=== PATIENT | male | born 1965 | race Caucasian/White ===

== ENCOUNTER 2020-01-22 16:29 | Inpatient (IN) ==
[2020-01-22] MEDS ORDERED: REMDESIVIR 200 MG in NS 250 ML IV 250 ML IV SCH (16:55)
[2020-01-22] MEDS ORDERED: XOPENEX 1.25 MG/3 ML NEBULE NEB SCH (17:00)
--- NOTE | 2020-01-22 17:32 | RAD ---
EXAM: CHEST X-RAYHISTORY: COVID-19 positive. Cough. Shortness of breath.TECHNIQUE: AP chest x-ray dated 01/22/2020 at 5:17 PM.COMPARISON: None available.FINDINGS:Note: Exam degraded by shallow inspiratory effort.There is mild prominence of the bronchopulmonary markings, especially throughout the right lung and left lower lung fitzpatrick, in keeping with bronchitis and interstitial pneumonia (e.g. Covid pneumonia) in the appropriate clinical setting; DDX includes mild noncardiogenic pulmonary congestion in the appropriate clinical setting. Clinical correlation is advised.No focal lung consolidation/mass, pleural effusion, or pneumothorax is seen.The heart size and mediastinum are within normal limits. The visualized bony structures are within normal limits.IMPRESSION:1. Mild prominence of the bronchopulmonary markings, especially in the long run left lower back lung fitzpatrick, in keeping with bronchitis and interstitial pneumonia (e.g. Covid pneumonia) in the appropriate clinical setting; DDX includes mild noncardiogenic pulmonary congestion in the appropriate clinical setting.2. Recommend clinical correlation and appropriate follow-up evaluation (consider high-resolution noncontrast chest CT) for confirmation and further characterization as clinically warranted.Electronically signed by: Marisa Green (Jan 22, 2020 17:30:43)
[2020-01-22 17:39] LABS: ABG ALLEN TEST POS; ABG BASE EXCESS 0.9 mmol/L (-2.0-2.0); ABG HCO3 23.4 mmol/L (22-26)
[2020-01-22] MEDS ORDERED: TYLENOL 325 MG TAB PO PRN (17:54)
--- NOTE | 2020-01-22 18:09 | DR.H&P ---
H&P - History & Physical for Day of: H&P Date: 01/22/20 - Chief Complaint Chief Complaint: FEVER, DEHYDRATION, COVID+, SOB - History of Present Illness History of Present Illness: PT IS 54 WM DIRECT ADMIT WITH FAILED OUPTPT COVID 19 PNEUMONIA WITH HYPOXIA. PT TESTED POSITIVE ON 01/09. COMPLETED 10 DAYS OF AUGMENTIN AND STEROIDS WITH OUTPT ROCEPHIN INJECTIONS. PT REPORTS HE HAD FEVER FOR 5 DAYS, WEAKNESS INCREASED CHEST CONGESTION AND STEVENS. PT WAS GIVEN DOXYCYCLINE LAST WEEK AND PO PREDNISONE WITHOUT IMPROVEMENT. CXR REVEALED PNEUMONIA ON 01/21/20, O2 SAT IN OFFICE TODAY WAS 84-88% WITH TEMP 103 - Past Medical History Past Medical History: Anxiety, GERD, Hypertension - Past Surgical History Surgical History: Cholecystectomy - Family History Family Medical History: [place], Hypertension - Social History Does patient currently use any type of tobacco product: No Have you used tobacco products in the last 12 months: No Type of Tobacco Use: None Alcohol Use: None Drug Use: None - Medications Home Medications: MS Azithromycin [From Zithromax] Allergy (Verified 05/15/13 21:15) MS Fluticasone [From Flonase] Allergy (Verified 05/15/13 21:15) MS Moxifloxacin [From Avelox] Allergy (Verified 02/22/16 03:49) CONTINUE taking the following medications gabapentin 100 mg PO HS 01/22/20 [History] - Review of Systems Constitutional: Fever, Chills, Weakness, Malaise Eyes: No Symptoms Reported ENT: No Symptoms Reported Respiratory: Cough, Shortness of Breath Cardiovascular: No Symptoms Reported Gastrointestinal: Nausea Genitourinary: No Symptoms Reported Musculoskeletal: No Symptoms Reported Skin: No Symptoms Reported Neurological: No Symptoms Reported - Physical Exam Vital Signs: Temperature 103 F Pulse Rate [Apical] 125 Respiratory Rate 20 Blood Pressure [Left Arm] 136/83 Blood Pressure [Right Arm] 165/91 Blood Pressure 102/58 O2 Sat by Pulse Oximetry 94 Oriented: Normal Eyes: Normal Ear: Normal Nose: Normal Throat: Dry Respiratory: Diminished Throughout Cardiovascular: Normal : Normal Auscultation: Bowel Sounds: Normal Palpation: Normal Tenderness: Normal Skin: Decreased Turgur Musculoskeletal: Normal Psychiatric: Anxiety Affect: Anxious Speech Pattern: Clear, Appropriate - Assessment/Plan (1) Pneumonia due to COVID-19 virus Status: Acute Plan: ADMIT, ICU ISOLATION. ABG ON ADMISSION, CE, EKG. IV HYDRATION, IV ZOSYN AND DOXT, CONVALESCENT PLASMA. IV REMDESIVIR, SUPPLEMENTAL O2. PT/OT/RT (2) HTN (hypertension) Status: Acute (3) Dehydration, moderate Status: Acute - Allergies Allergies/Adverse Reactions: Allergies Allergy/AdvReac Type Severity Reaction Status Date / Time MS Azithromycin Allergy Verified 05/15/13 21:15 [From Zithromax] MS Fluticasone [From Flonase] Allergy Verified 05/15/13 21:15 MS Moxifloxacin [From Avelox] Allergy Verified 02/22/16 03:49
[2020-01-22 18:48] LABS: BASOPHILS % (AUTO) 0.2 % (0.2-1.0); EOSINOPHILS % (AUTO) 0.1 % (0.9-2.9); HEMATOCRIT 41.6 % (42.0-54.0); HEMOGLOBIN 13.9 g/dL (13.5-18.0); LYMPHOCYTES # (AUTO) 0.9 X10^3/uL (1.3-2.9); LYMPHOCYTES % (AUTO) 10.2 % (21.0-51.0); MEAN CORPUSCULAR HEMOGLOBIN 28.4 pg (27.0-34.0); MEAN CORPUSCULAR HGB CONC 33.3 g/dL (33.0-35.0); MEAN CORPUSCULAR VOLUME 85.3 fL (80.0-100.0); MEAN PLATELET VOLUME 7.5 fL (7.4-11.0); MONOCYTES # (AUTO) 0.7 x10^3/uL (0.3-0.8); MONOCYTES % (AUTO) 7.7 % (0.0-13.0); NEUTROPHILS # (AUTO) 7.3 x10^3/uL (2.2-4.8); NEUTROPHILS % (AUTO) 81.8 % (42.0-75.0); PLATELET COUNT 296 X10^3/uL (150.0-450.0); RED BLOOD COUNT 4.88 X10^6/uL (4.7-6.0); RED CELL DISTRIBUTION WIDTH 13.6 % (11.6-16.5); WHITE BLOOD COUNT 8.9 X10^3/uL (3.6-10.0)
[2020-01-22 19:13] LABS: BLOOD UREA NITROGEN 16 mg/dL (7-18); CALCIUM 8.8 mg/dL (8.5-10.1); CARBON DIOXIDE 28.5 mmol/L (21-32); CHLORIDE 97 mmol/L (98-107); COR NA(FOR HYPERGLY) 134 mmol/L (136-145); CREATININE 1.46 mg/dL (0.70-1.30); SODIUM 134 mmol/L (136-145); TROPONIN I < 0.02 ng/mL (0-1.5); eGFR NON BLACK RACES 54 (>60)
[2020-01-22] MEDS: ZOSYN VIAL 3.375 GRAMS 3.375 G in NS 100 ML IV + SPIKE MINIBAG* 100 ML IV SCH (19:16)
[2020-01-22 19:17] LABS: ALANINE AMINOTRANSFERASE 25 Units/L (12-78); ALBUMIN 3.1 g/dL (3.4-5.0); ALKALINE PHOSPHATASE 39 Units/L (46-116); ASPARTATE AMINO TRANSFERASE 20 Units/L (15-37); CKMB % 1.4 % (<4); COR CA(FOR HYPOALB) 9.5 mg/dL (8.5-10.1); CREATINE KINASE 73 Units/L (39-308); CREATINE KINASE MB < 1.0 ng/mL (0-4.0); TOTAL PROTEIN 7.1 g/dL (6.4-8.2)
[2020-01-22] MEDS: ROBITUSSIN DM PO SCH ×3 (19:30→20:33)
[2020-01-22] MEDS ORDERED: PULMICORT NEB TX 0.5 MG NEB ONE (19:30)
[2020-01-22] MEDS: NS 1000 ML 1,000 ML IV SCH (19:30)
[2020-01-22] MEDS: SOLU-Medrol 40 MG VIAL IVP SCH ×2 (19:30→21:25)
[2020-01-22] MEDS: PULMICORT NEB TX 0.5 MG NEB SCH (20:15)
[2020-01-22] MEDS: AMBIEN PO PRN (21:26)
[2020-01-22] MEDS: VIBRAMYCIN 100 MG in D5W 250 ML IV 250 ML IV SCH (21:45)
[2020-01-22 22:25] LABS: BILIRUBIN,URINE NEGATIVE (NEGATIVE); BLOOD/HEMOGLOBIN,URINE 1+ (NEGATIVE); GLUCOSE, URINE NEGATIVE (NEGATIVE); KETONES,URINE NEGATIVE (NEGATIVE); LEUKOCYTE ESTERASE ,URINE NEGATIVE (NEGATIVE); NITRITES,URINE NEGATIVE (NEGATIVE); PROTEIN,URINE 1+ (NEGATIVE); UROBILINOGEN,URINE NORMAL (NORMAL)
[2020-01-22 22:37] LABS: APPEARANCE,URINE CLEAR (CLEAR); COLOR,URINE YELLOW (YELLOW)
[2020-01-22 22:40] LABS: BACTERIA,URINE NEGATIVE /HPF (NEGATIVE); RBC,URINE 0-2 /HPF (0-3); SQUAMOUS EPITHELIAL CELL,UR RARE /HPF (NEGATIVE)
[2020-01-23] MEDS: AMBIEN PO PRN ×3 (00:10→22:00)
[2020-01-23] MEDS: XOPENEX 1.25 MG/3 ML NEBULE NEB SCH ×4 (00:30→17:05)
[2020-01-23 04:56] LABS: BASOPHILS % (AUTO) 0.1 % (0.2-1.0); HEMATOCRIT 37.6 % (42.0-54.0); HEMOGLOBIN 12.7 g/dL (13.5-18.0); LYMPHOCYTES # (AUTO) 0.5 X10^3/uL (1.3-2.9); MEAN CORPUSCULAR HEMOGLOBIN 28.7 pg (27.0-34.0); MEAN CORPUSCULAR HGB CONC 33.8 g/dL (33.0-35.0); MEAN CORPUSCULAR VOLUME 84.8 fL (80.0-100.0); MEAN PLATELET VOLUME 7.4 fL (7.4-11.0); MONOCYTES # (AUTO) 0.3 x10^3/uL (0.3-0.8); MONOCYTES % (AUTO) 6.7 % (0.0-13.0); NEUTROPHILS # (AUTO) 3.1 x10^3/uL (2.2-4.8); NEUTROPHILS % (AUTO) 81.2 % (42.0-75.0); PLATELET COUNT 268 X10^3/uL (150.0-450.0); RED BLOOD COUNT 4.43 X10^6/uL (4.7-6.0); RED CELL DISTRIBUTION WIDTH 13.5 % (11.6-16.5); WHITE BLOOD COUNT 3.8 X10^3/uL (3.6-10.0)
[2020-01-23 05:11] LABS: ALANINE AMINOTRANSFERASE 20 Units/L (12-78); ALBUMIN 2.7 g/dL (3.4-5.0); ALKALINE PHOSPHATASE 38 Units/L (46-116); ASPARTATE AMINO TRANSFERASE 17 Units/L (15-37); BLOOD UREA NITROGEN 18 mg/dL (7-18); CALCIUM 8.6 mg/dL (8.5-10.1); CHLORIDE 100 mmol/L (98-107); COR CA(FOR HYPOALB) 9.6 mg/dL (8.5-10.1); COR NA(FOR HYPERGLY) 139 mmol/L (136-145); CREATININE 1.38 mg/dL (0.70-1.30); SODIUM 135 mmol/L (136-145); TOTAL PROTEIN 6.6 g/dL (6.4-8.2); eGFR NON BLACK RACES 57 (>60)
[2020-01-23] MEDS: ZOSYN VIAL 3.375 GRAMS 3.375 G in NS 100 ML IV + SPIKE MINIBAG* 100 ML IV SCH ×5 (05:52→22:00)
[2020-01-23] MEDS: SOLU-Medrol 40 MG VIAL IVP SCH ×3 (05:52→22:00)
[2020-01-23] MEDS: NS 1000 ML 1,000 ML IV SCH ×3 (05:53→20:40)
[2020-01-23] MEDS: CARDIZEM SR 90 MG 12-HR PO SCH (08:24)
[2020-01-23] MEDS: BENICAR TAB 40 MG PO SCH (08:24)
[2020-01-23] MEDS: VIBRAMYCIN 100 MG in D5W 250 ML IV 250 ML IV SCH ×2 (08:25→20:40)
[2020-01-23] MEDS: ROBITUSSIN DM PO SCH ×4 (08:25→20:40)
[2020-01-23] MEDS: PROTONIX TAB 40 MG PO SCH (08:25)
[2020-01-23] MEDS: REMDESIVIR 100 MG in NS 250 ML IV 250 ML IV SCH (08:25)
[2020-01-23] MEDS: PULMICORT NEB TX 0.5 MG NEB SCH ×2 (09:35→21:14)
[2020-01-23] MEDS: LOVENOX INJ 40 MG SYR SC SCH (10:17)
[2020-01-23] MEDS ORDERED: TUSSIONEX PENNKINETIC SUSP PO PRN (17:07)
--- NOTE | 2020-01-23 17:39 | RAD ---
EXAM: CHEST X-RAYHISTORY: COVID-19 positive. Pneumonia. Dehydration. Fever.TECHNIQUE: AP chest x-ray.COMPARISON: None available.FINDINGS:There is mild prominence of the bronchopulmonary markings, especially in the middle and lower lung fitzpatrick, in keeping with bronchitis and interstitial pneumonia (e.g. Covid pneumonia) in the appropriate clinical setting; DDX includes mild noncardiogenic pulmonary congestion in the appropriate clinical setting. Clinical correlation is advised.No focal lung consolidation/mass, pleural effusion, or pneumothorax is seen.The heart size and mediastinum are within normal limits. The visualized bony structures are within normal limits.IMPRESSION:1. Mild prominence of the bronchopulmonary markings, especially in the middle and lower lung fitzpatrick, in keeping with bronchitis and interstitial pneumonia (e.g. Covid pneumonia) in the appropriate clinical setting; DDX includes mild noncardiogenic pulmonary congestion in the appropriate clinical setting.2. Recommend clinical correlation and appropriate follow-up evaluation (consider high-resolution noncontrast chest CT) for confirmation and further characterization as clinically warranted.Electronically signed by: Marisa Green (Jan 23, 2020 17:38:03)
[2020-01-23] MEDS ORDERED: PULMICORT NEB TX 0.5 MG NEB ONE (20:24)
[2020-01-23] MEDS ORDERED: NEURONTIN CAP 100 MG ONE (20:54)
[2020-01-23] MEDS: NEURONTIN CAP 100 MG PO SCH (21:03)
[2020-01-24] MEDS: XOPENEX 1.25 MG/3 ML NEBULE NEB SCH ×4 (00:35→17:05)
[2020-01-24 04:40] LABS: BASOPHILS % (AUTO) 0.1 % (0.2-1.0); HEMATOCRIT 35.4 % (42.0-54.0); HEMOGLOBIN 11.8 g/dL (13.5-18.0); LYMPHOCYTES # (AUTO) 0.9 X10^3/uL (1.3-2.9); LYMPHOCYTES % (AUTO) 13.6 % (21.0-51.0); MEAN CORPUSCULAR HEMOGLOBIN 28.6 pg (27.0-34.0); MEAN CORPUSCULAR HGB CONC 33.3 g/dL (33.0-35.0); MEAN CORPUSCULAR VOLUME 85.9 fL (80.0-100.0); MEAN PLATELET VOLUME 7.6 fL (7.4-11.0); MONOCYTES # (AUTO) 0.5 x10^3/uL (0.3-0.8); MONOCYTES % (AUTO) 7.9 % (0.0-13.0); NEUTROPHILS # (AUTO) 5.4 x10^3/uL (2.2-4.8); NEUTROPHILS % (AUTO) 78.4 % (42.0-75.0); PLATELET COUNT 282 X10^3/uL (150.0-450.0); RED BLOOD COUNT 4.12 X10^6/uL (4.7-6.0); RED CELL DISTRIBUTION WIDTH 13.6 % (11.6-16.5); WHITE BLOOD COUNT 6.9 X10^3/uL (3.6-10.0)
[2020-01-24 04:58] LABS: ALANINE AMINOTRANSFERASE 22 Units/L (12-78); ALBUMIN 2.5 g/dL (3.4-5.0); ALKALINE PHOSPHATASE 34 Units/L (46-116); ASPARTATE AMINO TRANSFERASE 16 Units/L (15-37); BLOOD UREA NITROGEN 25 mg/dL (7-18); CALCIUM 8.6 mg/dL (8.5-10.1); CHLORIDE 104 mmol/L (98-107); COR CA(FOR HYPOALB) 9.8 mg/dL (8.5-10.1); COR NA(FOR HYPERGLY) 140 mmol/L (136-145); CREATININE 1.51 mg/dL (0.70-1.30); SODIUM 137 mmol/L (136-145); eGFR NON BLACK RACES 52 (>60)
[2020-01-24] MEDS: SOLU-Medrol 40 MG VIAL IVP SCH ×3 (05:17→21:05)
[2020-01-24] MEDS: ZOSYN VIAL 3.375 GRAMS 3.375 G in NS 100 ML IV + SPIKE MINIBAG* 100 ML IV SCH ×3 (05:18→22:25)
[2020-01-24] MEDS: NS 1000 ML 1,000 ML IV SCH ×2 (05:18→13:48)
[2020-01-24 06:05] LABS: ABG ALLEN TEST POS; ABG BASE EXCESS -0.2 mmol/L (-2.0-2.0)
[2020-01-24] MEDS: VIBRAMYCIN 100 MG in D5W 250 ML IV 250 ML IV SCH ×2 (09:17→21:05)
[2020-01-24] MEDS: ROBITUSSIN DM PO SCH ×4 (09:18→21:05)
[2020-01-24] MEDS: BENICAR TAB 40 MG PO SCH (09:18)
[2020-01-24] MEDS: PROTONIX TAB 40 MG PO SCH (09:18)
[2020-01-24] MEDS: REMDESIVIR 100 MG in NS 250 ML IV 250 ML IV SCH (09:18)
[2020-01-24] MEDS: LOVENOX INJ 40 MG SYR SC SCH (09:21)
[2020-01-24] MEDS: PULMICORT NEB TX 0.5 MG NEB SCH ×2 (09:25→21:45)
[2020-01-24 10:34] LABS: ABG BASE EXCESS -4.6 mmol/L (-2.0-2.0); ABG HCO3 19.2 mmol/L (22-26)
[2020-01-24] MEDS: CARDIZEM SR 90 MG 12-HR PO SCH (11:11)
--- NOTE | 2020-01-24 12:16 | RAD ---
CHEST, 1 VIEWHISTORY: PNEUMONIAStudy: Single view of the chest.Comparison:NoneFindings:The cardiomediastinal silhouette is normal. Bilateral interstitial prominence. No focal consolidations, pleural effusions or pneumothorax. Osseous structures demonstrate no acute abnormality.IMPRESSION:1. Bilateral interstitial prominence. Findings may represent atypical infection, including viral etiologies.Electronically signed by: RADHA CASTELLANO (Jan 24, 2020 12:15:25)
[2020-01-24] MEDS: AMBIEN PO PRN (21:05)
[2020-01-24] MEDS: NEURONTIN CAP 100 MG PO SCH (21:05)
[2020-01-25] MEDS: XOPENEX 1.25 MG/3 ML NEBULE NEB SCH ×4 (00:45→17:05)
[2020-01-25] MEDS: NS 1000 ML 1,000 ML IV SCH ×3 (02:24→14:38)
[2020-01-25 05:28] LABS: BASOPHILS % (AUTO) 0.3 % (0.2-1.0); HEMATOCRIT 33.4 % (42.0-54.0); HEMOGLOBIN 11.6 g/dL (13.5-18.0); LYMPHOCYTES # (AUTO) 0.8 X10^3/uL (1.3-2.9); LYMPHOCYTES % (AUTO) 8.6 % (21.0-51.0); MEAN CORPUSCULAR HEMOGLOBIN 28.9 pg (27.0-34.0); MEAN CORPUSCULAR HGB CONC 34.6 g/dL (33.0-35.0); MEAN CORPUSCULAR VOLUME 83.6 fL (80.0-100.0); MEAN PLATELET VOLUME 7.3 fL (7.4-11.0); MONOCYTES # (AUTO) 0.6 x10^3/uL (0.3-0.8); NEUTROPHILS # (AUTO) 8.1 x10^3/uL (2.2-4.8); NEUTROPHILS % (AUTO) 85.1 % (42.0-75.0); PLATELET COUNT 325 X10^3/uL (150.0-450.0); RED BLOOD COUNT 3.99 X10^6/uL (4.7-6.0); RED CELL DISTRIBUTION WIDTH 13.2 % (11.6-16.5); WHITE BLOOD COUNT 9.6 X10^3/uL (3.6-10.0)
[2020-01-25 05:39] LABS: ALANINE AMINOTRANSFERASE 18 Units/L (12-78); ALBUMIN 2.4 g/dL (3.4-5.0); ALKALINE PHOSPHATASE 40 Units/L (46-116); ASPARTATE AMINO TRANSFERASE 23 Units/L (15-37); BLOOD UREA NITROGEN 28 mg/dL (7-18); CALCIUM 8.4 mg/dL (8.5-10.1); CARBON DIOXIDE 24.7 mmol/L (21-32); CHLORIDE 104 mmol/L (98-107); COR CA(FOR HYPOALB) 9.7 mg/dL (8.5-10.1); COR NA(FOR HYPERGLY) 142 mmol/L (136-145); CREATININE 1.46 mg/dL (0.70-1.30); SODIUM 138 mmol/L (136-145); TOTAL PROTEIN 5.6 g/dL (6.4-8.2); eGFR NON BLACK RACES 54 (>60)
[2020-01-25] MEDS: ZOSYN VIAL 3.375 GRAMS 3.375 G in NS 100 ML IV + SPIKE MINIBAG* 100 ML IV SCH ×3 (05:40→21:04)
[2020-01-25] MEDS: SOLU-Medrol 40 MG VIAL IVP SCH ×3 (05:40→21:04)
[2020-01-25 06:27] LABS: ABG ALLEN TEST POS; ABG BASE EXCESS 0.1 mmol/L (-2.0-2.0); ABG HCO3 23.6 mmol/L (22-26)
[2020-01-25] MEDS: PULMICORT NEB TX 0.5 MG NEB SCH ×2 (09:15→21:30)
[2020-01-25] MEDS: VIBRAMYCIN 100 MG in D5W 250 ML IV 250 ML IV SCH ×2 (09:32→20:32)
[2020-01-25] MEDS: REMDESIVIR 100 MG in NS 250 ML IV 250 ML IV SCH (09:32)
[2020-01-25] MEDS: LOVENOX INJ 40 MG SYR SC SCH (09:32)
[2020-01-25] MEDS: ROBITUSSIN DM PO SCH ×4 (09:33→20:32)
[2020-01-25] MEDS: PROTONIX TAB 40 MG PO SCH (09:33)
[2020-01-25] MEDS: BENICAR TAB 40 MG PO SCH (09:33)
[2020-01-25] MEDS: CARDIZEM SR 90 MG 12-HR PO SCH (09:33)
--- NOTE | 2020-01-25 10:58 | RAD ---
HISTORYCOVID PNEUMONIASTUDYCHEST x-ray, 1 VIEWCOMPARISONX-ray 01/24/2020FINDINGSBilateral pneumonia is similar to prior study. Heart is normal in size. No pneumothorax or pleural effusion is seen.IMPRESSIONNo change in bilateral pneumonia.Electronically signed by: David Alcantara (Jan 25, 2020 10:56:36)
[2020-01-25] MEDS: NEURONTIN CAP 100 MG PO SCH (20:31)
[2020-01-26] MEDS: XOPENEX 1.25 MG/3 ML NEBULE NEB SCH ×2 (00:55→06:36)
[2020-01-26] MEDS: NS 1000 ML 1,000 ML IV SCH (02:00)
[2020-01-26 05:33] LABS: BASOPHILS % (AUTO) 0.1 % (0.2-1.0); HEMATOCRIT 33.4 % (42.0-54.0); HEMOGLOBIN 11.4 g/dL (13.5-18.0); LYMPHOCYTES # (AUTO) 0.7 X10^3/uL (1.3-2.9); LYMPHOCYTES % (AUTO) 8.7 % (21.0-51.0); MEAN CORPUSCULAR HEMOGLOBIN 28.9 pg (27.0-34.0); MEAN CORPUSCULAR HGB CONC 34.1 g/dL (33.0-35.0); MEAN CORPUSCULAR VOLUME 84.5 fL (80.0-100.0); MEAN PLATELET VOLUME 7.5 fL (7.4-11.0); MONOCYTES # (AUTO) 0.5 x10^3/uL (0.3-0.8); MONOCYTES % (AUTO) 6.7 % (0.0-13.0); NEUTROPHILS # (AUTO) 6.5 x10^3/uL (2.2-4.8); NEUTROPHILS % (AUTO) 84.5 % (42.0-75.0); PLATELET COUNT 325 X10^3/uL (150.0-450.0); RED BLOOD COUNT 3.95 X10^6/uL (4.7-6.0); RED CELL DISTRIBUTION WIDTH 13.2 % (11.6-16.5); WHITE BLOOD COUNT 7.7 X10^3/uL (3.6-10.0)
[2020-01-26 05:51] LABS: ALANINE AMINOTRANSFERASE 25 Units/L (12-78); ALBUMIN 2.3 g/dL (3.4-5.0); ALKALINE PHOSPHATASE 59 Units/L (46-116); ASPARTATE AMINO TRANSFERASE 14 Units/L (15-37); BLOOD UREA NITROGEN 33 mg/dL (7-18); CALCIUM 8.2 mg/dL (8.5-10.1); CARBON DIOXIDE 25.4 mmol/L (21-32); CHLORIDE 106 mmol/L (98-107); COR CA(FOR HYPOALB) 9.6 mg/dL (8.5-10.1); COR NA(FOR HYPERGLY) 145 mmol/L (136-145); SODIUM 139 mmol/L (136-145); TOTAL PROTEIN 5.3 g/dL (6.4-8.2); eGFR NON BLACK RACES 56 (>60)
--- NOTE | 2020-01-26 06:00 | RAD ---
CHEST, 1 VIEWHISTORY: PNEUMONIA, COVID-19Study: Single view of the chest.Comparison:January 25, 2020Findings:The cardiomediastinal silhouette is normal. Bilateral interstitial prominence, possible early alveolar infiltrates.These findings have worsened when compared to prior. No focal consolidations, pleural effusions or pneumothorax. Osseous structures demonstrate no acute abnormality.IMPRESSION:1. Worsening bilateral interstitial prominence and early alveolar infiltrates. Findings may represent atypical infection, including viral etiologies.Electronically signed by: RADHA CASTELLANO (Jan 26, 2020 05:58:44)
[2020-01-26] MEDS: SOLU-Medrol 40 MG VIAL IVP SCH (06:02)
[2020-01-26] MEDS: ZOSYN VIAL 3.375 GRAMS 3.375 G in NS 100 ML IV + SPIKE MINIBAG* 100 ML IV SCH (06:02)
[2020-01-26 06:38] LABS: ABG ALLEN TEST POS; ABG BASE EXCESS 2.2 mmol/L (-2.0-2.0); ABG HCO3 23.6 mmol/L (22-26)
[2020-01-26] MEDS: BENICAR TAB 40 MG PO SCH (08:55)
[2020-01-26] MEDS: LOVENOX INJ 40 MG SYR SC SCH (08:55)
[2020-01-26] MEDS: CARDIZEM SR 90 MG 12-HR PO SCH (08:55)
[2020-01-26] MEDS: PULMICORT NEB TX 0.5 MG NEB SCH (08:55)
[2020-01-26] MEDS: REMDESIVIR 100 MG in NS 250 ML IV 250 ML IV SCH (08:56)
[2020-01-26] MEDS: ROBITUSSIN DM PO SCH (08:56)
[2020-01-26] MEDS: PROTONIX TAB 40 MG PO SCH (08:56)
[2020-01-26] MEDS: VIBRAMYCIN 100 MG in D5W 250 ML IV 250 ML IV SCH (09:30)
--- NOTE | 2020-01-26 09:34 | W.DIS.FURT ---
Summary of Discharge Discharge Summary of Date Date of Exam: 01/26/20 Admission Date Date of Admission: 01/22/20 Admission Diagnosis Patient Problems (Updated 01/22/20 @ 18:11 by BETHANIE FLEMING) HTN (hypertension) (Acute) I10 Pneumonia due to COVID-19 virus (Acute) U07.1, J12.89 Dehydration, moderate (Acute) E86.0 Hospital Course: Pt is a 54 yo m admitted for COVID19 pneumonia and hypoxia. His h ospital/treatment course included IV Solumedrol, Remdesivir, Zosyn, Convalescent plasma, Bronchodilators, and supplemental O2. He responded well to treatments. Labs:Wbc 7.7, Hgb 11.4, Plt 325, Na 139, K 4.4, Cr 1.4, Gluc 340. AB.55/27/74/23/96% on RA. CRP 17. On day of discharge pt was resting comfortably in chair. He has home oxygen set up. Rx prednisone x 5 days to complete. Pt discharge in stable condition. Instructed to follow up with pcp in 1 week. Vital Signs: Vital Signs (72 hours) 01/23/20 10:00 01/23/20 11:00 01/23/20 12:00 Temperature 98.1 F Pulse Rate Pulse Rate [Apical] 89 85 89 Respiratory Rate 19 22 21 Blood Pressure Blood Pressure [Left Arm] 124/66 109/62 129/73 O2 Sat by Pulse Oximetry 95 95 95 01/23/20 13:00 01/23/20 14:00 01/23/20 15:00 Temperature Pulse Rate Pulse Rate [Apical] 102 H 92 H 87 Respiratory Rate 26 H 26 H 33 H Blood Pressure Blood Pressure [Left Arm] 138/69 132/69 135/71 O2 Sat by Pulse Oximetry 94 L 95 93 L 01/23/20 16:00 01/23/20 17:00 01/23/20 18:00 Temperature 98.7 F Pulse Rate Pulse Rate [Apical] 85 105 H 92 H Respiratory Rate 20 22 29 H Blood Pressure Blood Pressure [Left Arm] 123/69 160/73 133/66 O2 Sat by Pulse Oximetry 90 L 94 L 98 01/23/20 19:00 01/23/20 20:00 01/23/20 21:00 Temperature 98.6 F Pulse Rate Pulse Rate [Apical] 85 85 86 Respiratory Rate 24 29 H 24 Blood Pressure Blood Pressure [Left Arm] 136/73 134/74 147/79 O2 Sat by Pulse Oximetry 96 96 95 01/23/20 21:15 01/23/20 22:00 01/23/20 22:15 Temperature Pulse Rate 84 72 Pulse Rate [Apical] 77 Respiratory Rate 24 21 Blood Pressure Blood Pressure [Left Arm] 136/69 O2 Sat by Pulse Oximetry 97 94 L 95 01/23/20 22:30 01/23/20 22:45 01/23/20 23:00 Temperature Pulse Rate 82 80 76 Pulse Rate [Apical] 76 Respiratory Rate 23 17 18 Blood Pressure 123/60 Blood Pressure [Left Arm] 123/60 O2 Sat by Pulse Oximetry 95 92 L 91 L 01/23/20 23:15 01/23/20 23:30 01/23/20 23:45 Temperature Pulse Rate 72 73 83 Pulse Rate [Apical] Respiratory Rate 20 16 26 H Blood Pressure Blood Pressure [Left Arm] O2 Sat by Pulse Oximetry 91 L 99 93 L 01/24/20 00:00 01/24/20 00:15 01/24/20 00:30 Temperature 97.9 F Pulse Rate 75 74 77 Pulse Rate [Apical] 75 Respiratory Rate 51 H 24 24 Blood Pressure 113/59 Blood Pressure [Left Arm] 113/59 O2 Sat by Pulse Oximetry 94 L 94 L 96 01/24/20 00:36 01/24/20 00:45 01/24/20 01:00 Temperature Pulse Rate 88 78 76 Pulse Rate [Apical] 75 Respiratory Rate 20 37 H Blood Pressure 99/58 Blood Pressure [Left Arm] 99/58 O2 Sat by Pulse Oximetry 94 L 95 95 01/24/20 01:15 01/24/20 01:30 01/24/20 01:45 Temperature Pulse Rate 76 69 73 Pulse Rate [Apical] Respiratory Rate 37 H 21 18 Blood Pressure Blood Pressure [Left Arm] O2 Sat by Pulse Oximetry 92 L 91 L 90 L 01/24/20 02:00 01/24/20 02:15 01/24/20 02:30 Temperature Pulse Rate 75 70 70 Pulse Rate [Apical] 76 Respiratory Rate 18 21 19 Blood Pressure 99/56 Blood Pressure [Left Arm] 99/56 O2 Sat by Pulse Oximetry 89 L 95 95 01/24/20 02:45 01/24/20 03:00 01/24/20 03:15 Temperature Pulse Rate 71 69 69 Pulse Rate [Apical] 69 Respiratory Rate 20 17 18 Blood Pressure 101/55 Blood Pressure [Left Arm] 101/55 O2 Sat by Pulse Oximetry 96 94 L 95 01/24/20 03:30 01/24/20 03:45 01/24/20 04:00 Temperature 97.7 F Pulse Rate 72 70 Pulse Rate [Apical] 74 Respiratory Rate 15 20 24 Blood Pressure 98/59 Blood Pressure [Left Arm] 95/59 O2 Sat by Pulse Oximetry 95 94 L 95 01/24/20 04:15 01/24/20 04:30 01/24/20 04:45 Temperature Pulse Rate 86 75 71 Pulse Rate [Apical] Respiratory Rate 24 17 0 L Blood Pressure Blood Pressure [Left Arm] O2 Sat by Pulse Oximetry 95 94 L 94 L 01/24/20 05:00 01/24/20 05:15 01/24/20 05:30 Temperature Pulse Rate 70 65 63 Pulse Rate [Apical] 67 Respiratory Rate 7 L 14 8 L Blood Pressure 107/58 Blood Pressure [Left Arm] 107/58 O2 Sat by Pulse Oximetry 94 L 95 96 01/24/20 05:45 01/24/20 06:00 01/24/20 06:15 Temperature Pulse Rate 67 77 79 Pulse Rate [Apical] 80 Respiratory Rate 0 L 15 9 L Blood Pressure 112/63 Blood Pressure [Left Arm] 112/63 O2 Sat by Pulse Oximetry 95 96 93 L 01/24/20 06:17 01/24/20 06:30 01/24/20 06:45 Temperature Pulse Rate 65 81 78 Pulse Rate [Apical] Respiratory Rate 27 H 22 Blood Pressure Blood Pressure [Left Arm] O2 Sat by Pulse Oximetry 95 92 L 92 L 01/24/20 07:00 01/24/20 07:15 01/24/20 07:30 Temperature Pulse Rate 88 84 85 Pulse Rate [Apical] Respiratory Rate 37 H 24 17 Blood Pressure 115/57 Blood Pressure [Left Arm] O2 Sat by Pulse Oximetry 93 L 93 L 95 01/24/20 07:45 01/24/20 08:00 01/24/20 08:15 Temperature 98.7 F Pulse Rate 92 H 94 H 92 H Pulse Rate [Apical] Respiratory Rate 27 H 24 27 H Blood Pressure 119/56 Blood Pressure [Left Arm] O2 Sat by Pulse Oximetry 95 94 L 94 L 01/24/20 08:30 01/24/20 08:45 01/24/20 09:00 Temperature Pulse Rate 96 H 101 H 89 Pulse Rate [Apical] Respiratory Rate 36 H 36 H 24 Blood Pressure 108/56 Blood Pressure [Left Arm] O2 Sat by Pulse Oximetry 93 L 90 L 95 01/24/20 09:15 01/24/20 09:25 01/24/20 09:30 Temperature Pulse Rate 89 96 H 95 H Pulse Rate [Apical] Respiratory Rate 18 24 Blood Pressure Blood Pressure [Left Arm] O2 Sat by Pulse Oximetry 96 95 97 01/24/20 09:45 01/24/20 10:27 01/24/20 11:12 Temperature Pulse Rate 104 H 98 H 99 H Pulse Rate [Apical] Respiratory Rate Blood Pressure Blood Pressure [Left Arm] O2 Sat by Pulse Oximetry 92 L 94 L 94 L 01/24/20 11:13 01/24/20 11:15 01/24/20 11:30 Temperature Pulse Rate 100 H 98 H 98 H Pulse Rate [Apical] Respiratory Rate 26 H 15 27 H Blood Pressure 131/65 Blood Pressure [Left Arm] O2 Sat by Pulse Oximetry 92 L 93 L 93 L 01/24/20 11:45 01/24/20 12:00 01/24/20 12:05 Temperature 98.2 F Pulse Rate 96 H 92 H 98 H Pulse Rate [Apical] Respiratory Rate 27 H 23 Blood Pressure 131/65 Blood Pressure [Left Arm] O2 Sat by Pulse Oximetry 93 L 93 L 94 L 01/24/20 12:15 01/24/20 12:30 01/24/20 12:45 Temperature Pulse Rate 101 H 106 H 101 H Pulse Rate [Apical] Respiratory Rate 24 44 H 33 H Blood Pressure Blood Pressure [Left Arm] O2 Sat by Pulse Oximetry 93 L 90 L 94 L 01/24/20 13:00 01/24/20 13:15 01/24/20 13:30 Temperature Pulse Rate 93 H 96 H 95 H Pulse Rate [Apical] Respiratory Rate 29 H 25 H 27 H Blood Pressure 138/64 Blood Pressure [Left Arm] O2 Sat by Pulse Oximetry 94 L 96 94 L 01/24/20 13:45 01/24/20 14:00 01/24/20 14:15 Temperature Pulse Rate 87 86 99 H Pulse Rate [Apical] Respiratory Rate 22 26 H 19 Blood Pressure 117/58 Blood Pressure [Left Arm] O2 Sat by Pulse Oximetry 96 95 94 L 01/24/20 14:32 01/24/20 14:45 01/24/20 15:00 Temperature Pulse Rate 93 H 101 H 90 Pulse Rate [Apical] Respiratory Rate 24 24 24 Blood Pressure 123/59 Blood Pressure [Left Arm] O2 Sat by Pulse Oximetry 95 94 L 94 L 01/24/20 15:15 01/24/20 15:30 01/24/20 15:45 Temperature Pulse Rate 83 100 H 86 Pulse Rate [Apical] Respiratory Rate 30 H 29 H 26 H Blood Pressure Blood Pressure [Left Arm] O2 Sat by Pulse Oximetry 92 L 95 92 L 01/24/20 16:00 01/24/20 16:15 01/24/20 16:30 Temperature 98.1 F Pulse Rate 90 92 H 93 H Pulse Rate [Apical] Respiratory Rate 25 H 25 H 26 H Blood Pressure 128/60 Blood Pressure [Left Arm] O2 Sat by Pulse Oximetry 94 L 95 94 L 01/24/20 16:45 01/24/20 17:00 01/24/20 17:05 Temperature Pulse Rate 96 H 91 H 92 H Pulse Rate [Apical] Respiratory Rate 25 H 20 Blood Pressure 127/60 Blood Pressure [Left Arm] O2 Sat by Pulse Oximetry 98 99 97 01/24/20 17:15 01/24/20 17:30 01/24/20 17:45 Temperature Pulse Rate 98 H 93 H 102 H Pulse Rate [Apical] Respiratory Rate 28 H 27 H 27 H Blood Pressure Blood Pressure [Left Arm] O2 Sat by Pulse Oximetry 94 L 94 L 93 L 01/24/20 19:00 01/24/20 19:34 01/24/20 19:35 Temperature Pulse Rate 89 88 86 Pulse Rate [Apical] Respiratory Rate 24 28 H 29 H Blood Pressure 133/65 133/65 Blood Pressure [Left Arm] O2 Sat by Pulse Oximetry 96 89 L 91 L 01/24/20 20:00 01/24/20 21:00 01/24/20 21:45 Temperature 98.6 F Pulse Rate 86 87 81 Pulse Rate [Apical] Respiratory Rate 28 H 24 Blood Pressure 124/62 127/61 Blood Pressure [Left Arm] O2 Sat by Pulse Oximetry 95 95 96 01/24/20 22:00 01/24/20 23:00 01/25/20 00:00 Temperature 98.1 F Pulse Rate 86 80 76 Pulse Rate [Apical] Respiratory Rate 25 H 25 H 23 Blood Pressure 131/60 122/59 122/60 Blood Pressure [Left Arm] O2 Sat by Pulse Oximetry 94 L 93 L 94 L 01/25/20 01:00 01/25/20 02:00 01/25/20 03:00 Temperature Pulse Rate 76 76 73 Pulse Rate [Apical] Respiratory Rate 24 18 18 Blood Pressure 112/57 118/68 109/62 Blood Pressure [Left Arm] O2 Sat by Pulse Oximetry 95 97 94 L 01/25/20 04:00 01/25/20 05:00 01/25/20 05:25 Temperature 98.8 F Pulse Rate 71 74 79 Pulse Rate [Apical] Respiratory Rate 18 25 H 28 H Blood Pressure 109/64 122/68 122/68 Blood Pressure [Left Arm] O2 Sat by Pulse Oximetry 95 94 L 95 01/25/20 06:00 01/25/20 07:00 01/25/20 08:00 Temperature 98.7 F Pulse Rate 70 79 87 Pulse Rate [Apical] Respiratory Rate 19 19 19 Blood Pressure 112/63 119/56 121/66 Blood Pressure [Left Arm] O2 Sat by Pulse Oximetry 89 L 91 L 90 L 01/25/20 09:09 01/25/20 09:15 01/25/20 09:54 Temperature Pulse Rate 96 H 92 H 92 H Pulse Rate [Apical] Respiratory Rate Blood Pressure 131/61 Blood Pressure [Left Arm] O2 Sat by Pulse Oximetry 94 L 95 90 L 01/25/20 12:29 01/25/20 12:30 01/25/20 13:00 Temperature 98.1 F Pulse Rate 97 H 94 H Pulse Rate [Apical] Respiratory Rate Blood Pressure 140/71 167/68 Blood Pressure [Left Arm] O2 Sat by Pulse Oximetry 96 94 L 93 L 01/25/20 13:53 01/25/20 13:54 01/25/20 17:00 Temperature Pulse Rate 94 H 93 H 87 Pulse Rate [Apical] Respiratory Rate Blood Pressure 167/68 143/60 136/68 Blood Pressure [Left Arm] O2 Sat by Pulse Oximetry 94 L 94 L 94 L 01/25/20 17:05 01/25/20 20:26 01/25/20 21:00 Temperature 98.0 F Pulse Rate 84 93 H 82 Pulse Rate [Apical] Respiratory Rate 34 H 26 H Blood Pressure Blood Pressure [Left Arm] O2 Sat by Pulse Oximetry 95 92 L 95 01/25/20 21:30 01/25/20 22:00 01/25/20 23:00 Temperature Pulse Rate 80 84 85 Pulse Rate [Apical] Respiratory Rate 27 H 28 H Blood Pressure Blood Pressure [Left Arm] O2 Sat by Pulse Oximetry 96 93 L 95 01/26/20 00:00 01/26/20 01:00 01/26/20 02:00 Temperature 98.2 F Pulse Rate 75 80 73 Pulse Rate [Apical] Respiratory Rate 19 22 21 Blood Pressure Blood Pressure [Left Arm] O2 Sat by Pulse Oximetry 95 95 94 L 01/26/20 03:00 01/26/20 04:00 01/26/20 05:00 Temperature 98.0 F Pulse Rate 75 70 71 Pulse Rate [Apical] Respiratory Rate 16 17 17 Blood Pressure Blood Pressure [Left Arm] O2 Sat by Pulse Oximetry 95 95 95 01/26/20 06:00 01/26/20 08:55 Temperature Pulse Rate Pulse Rate [Apical] Respiratory Rate Blood Pressure 126/68 Blood Pressure [Left Arm] O2 Sat by Pulse Oximetry 95 Labs: Laboratory Last Values WBC 7.7 X10^3/uL (3.6-10.0) 01/26/20 04:48 RBC 3.95 X10^6/uL (4.7-6.0) L 01/26/20 04:48 Hgb 11.4 g/dL (13.5-18.0) L 01/26/20 04:48 Hct 33.4 % (42.0-54.0) L 01/26/20 04:48 MCV 84.5 fL (80.0-100.0) 01/26/20 04:48 MCH 28.9 pg (27.0-34.0) 01/26/20 04:48 MCHC 34.1 g/dL (33.0-35.0) 01/26/20 04:48 RDW 13.2 % (11.6-16.5) 01/26/20 04:48 Plt Count 325 X10^3/uL (150.0-450.0) 01/26/20 04:48 MPV 7.5 fL (7.4-11.0) 01/26/20 04:48 Neut % (Auto) 84.5 % (42.0-75.0) H 01/26/20 04:48 Lymph % (Auto) 8.7 % (21.0-51.0) L 01/26/20 04:48 [place] % (Auto) 6.7 % (0.0-13.0) 01/26/20 04:48 Eos % (Auto) 0.0 % (0.9-2.9) L 01/26/20 04:48 Baso % (Auto) 0.1 % (0.2-1.0) L 01/26/20 04:48 Neut # (Auto) 6.5 x10^3/uL (2.2-4.8) H 01/26/20 04:48 Lymph # (Auto) 0.7 X10^3/uL (1.3-2.9) L 01/26/20 04:48 [place] # (Auto) 0.5 x10^3/uL (0.3-0.8) 01/26/20 04:48 Eos # (Auto) 0.0 x10^3/uL (0.0-0.2) 01/26/20 04:48 Baso # (Auto) 0.0 X10^3/uL (0.0-0.1) 01/26/20 04:48 Absolute Nucleated RBC 0.0 /100WBC 01/26/20 04:48 D-Dimer 0.49 ug/ml (0.0-0.57) 01/22/20 18:21 Sample Site [place]rad 01/26/20 06:33 ABG pH 7.550 (7.35-7.45) H 01/26/20 06:33 ABG pCO2 27.0 mmHg (35.0-45.0) L 01/26/20 06:33 ABG pO2 74.0 mmHg (80.0-100.0) L 01/26/20 06:33 ABG HCO3 23.6 mmol/L (22-26) 01/26/20 06:33 ABG O2 Saturation 96.0 % (90-100) 01/26/20 06:33 ABG Base Excess 2.2 mmol/L (-2.0-2.0) H 01/26/20 06:33 Elias Test Pos 01/26/20 06:33 A-a Gradient 42.0 mmHg 01/26/20 06:33 FiO2 21.0 01/26/20 06:33 Blood Gas Comments Maribel abg well-mtf 01/26/20 06:33 Sodium 139 mmol/L (136-145) 01/26/20 04:48 Corrected Sodium 145 mmol/L (136-145) 01/26/20 04:48 Potassium 4.4 mmol/L (3.5-5.1) 01/26/20 04:48 Chloride 106 mmol/L (98-107) 01/26/20 04:48 Carbon Dioxide 25.4 mmol/L (21-32) 01/26/20 04:48 BUN 33 mg/dL (7-18) H 01/26/20 04:48 Creatinine 1.40 mg/dL (0.70-1.30) H 01/26/20 04:48 Est GFR (MDRD) Af Amer > 60 (>60) 01/26/20 04:48 Est GFR (MDRD) Non-Af 56 (>60) L 01/26/20 04:48 Glucose 340 mg/dL (65-99) H 01/26/20 04:48 Hemoglobin A1c 6.9 % 01/25/20 04:50 Calcium 8.2 mg/dL (8.5-10.1) L 01/26/20 04:48 Corrected Calcium 9.6 mg/dL (8.5-10.1) 01/26/20 04:48 Magnesium 2.0 mg/dL (1.7-2.9) 01/22/20 18:21 Ferritin 765 ng/mL (26-388) H 01/24/20 04:15 Total Bilirubin 0.30 mg/dL (0.2-1.0) 01/26/20 04:48 AST 14 Units/L (15-37) L 01/26/20 04:48 ALT 25 Units/L (12-78) 01/26/20 04:48 Alkaline Phosphatase 59 Units/L (46-116) 01/26/20 04:48 Creatine Kinase 73 Units/L (39-308) 01/22/20 18:21 CK-MB (CK-2) < 1.0 ng/mL (0-4.0) 01/22/20 18:21 CK/CKMB % Calc 1.4 % (<4) 01/22/20 18:21 Troponin I < 0.02 ng/mL (0-1.5) 01/22/20 18:21 C-Reactive Protein 17.70 mg/L (0-3.0) H 01/26/20 04:48 Total Protein 5.3 g/dL (6.4-8.2) L 01/26/20 04:48 Albumin 2.3 g/dL (3.4-5.0) L 01/26/20 04:48 Globulin 3.0 g/dL (2.5-4.5) 01/26/20 04:48 Albumin/Globulin Ratio 0.8 Ratio (1.1-2.1) L 01/26/20 04:48 Specimen Type Clean catch urine 01/22/20 22:11 Urine Color Yellow (YELLOW) 01/22/20 22:11 Urine Appearance Clear (CLEAR) 01/22/20 22:11 Urine pH 5.0 (5.0 - 8.0) 01/22/20 22:11 Ur Specific Pep 1.010 (1.000-1.030) 01/22/20 22:11 Urine Protein 1+ (NEGATIVE) 01/22/20 22:11 Urine Glucose (UA) Negative (NEGATIVE) 01/22/20 22:11 Urine Ketones Negative (NEGATIVE) 01/22/20 22:11 Urine Occult Blood 1+ (NEGATIVE) 01/22/20 22:11 Urine Nitrite Negative (NEGATIVE) 01/22/20 22:11 Urine Bilirubin Negative (NEGATIVE) 01/22/20 22:11 Urine Urobilinogen Normal (NORMAL) 01/22/20 22:11 Ur Leukocyte Esterase Negative (NEGATIVE) 01/22/20 22:11 Urine RBC 0-2 /HPF (0-3) 01/22/20 22:11 Urine WBC 0-2 /HPF (0-5) 01/22/20 22:11 Ur Squamous Epith Cells Rare /HPF (NEGATIVE) 01/22/20 22:11 Urine Bacteria Negative /HPF (NEGATIVE) 01/22/20 22:11 Ur Culture Indicated? No/not indicated 01/22/20 22:11 Blood Type O POSITIVE 01/22/20 18:21 Reason For Visit: PNEUMONIA,DEHYDRATION,COVID POSITIVE,TEMP Discharge Date Discharge Date: 01/26/20 Discharge Diagnosis All Active Problems (Updated 01/22/20 @ 18:11 by BETHANIE FLEMING) HTN (hypertension) (Acute) Pneumonia due to COVID-19 virus (Acute) Gastroenteritis, acute (Acute) Dehydration, moderate (Acute) Hyperglycemia (Acute) Pancreatitis (Acute) Cholelithiasis (Acute) Chronic kidney disease (CKD) stage G3a/A1, moderately decreased glomerular filtration rate (GFR) between 45-59 mL/min/1.73 square meter and albuminuria creatinine ratio less than 30 mg/g (Chronic) Diverticulosis of colon (Chronic) Plan of Treatment: Continue with present treatment and follow up plan. Pt is to keep follow up appointment as instructed and take medications as ordered. Discharge Medications Discharge Medications: azithromycin Adverse Reaction (Verified 01/23/20 03:40) fluticasone Adverse Reaction (Verified 01/23/20 03:40) moxifloxacin Adverse Reaction (Verified 01/23/20 03:40) CONTINUE taking the following medications gabapentin 100 mg PO HS 01/22/20 [History] Discharge Disposition Discharge Disposition: Home Discharge Condition: Stable Discharge Plan Discharge Plan Hospital Course: Pt is a 54 yo m admitted for COVID19 pneumonia and hypoxia. His hospital/treatment course included IV Solumedrol, Remdesivir, Zosyn, Convalescent plasma, Bronchodilators, and supplemental O2. He responded well to treatments. Labs:Wbc 7.7, Hgb 11.4, Plt 325, Na 139, K 4.4, Cr 1.4, Gluc 340. AB.55/27/74/23/96% on RA. CRP 17. On day of discharge pt was resting comfortably in chair. He has home oxygen set up. Rx prednisone x 5 days to complete. Pt discharge in stable condition. Instructed to follow up with pcp in 1 week. Patient Disposition: HOME, SELF-CARE Condition: Stable Health Concerns: Post Hospitalization: new medications and changes needed to prevent readmission or further decline. Pt educated and given instructions on all concerns. Plan of Treatment: Continue with present treatment and follow up plan. Pt is to keep follow up appointment as instructed and take medications as ordered. Prescriptions: New prednisone 20 mg tablet 40 mg PO DAILY 5 Days Qty: 10 RF: 0 Continued olmesartan [Benicar] 40 MG tablet 40 mg PO DAILY RF: 0 pantoprazole 40 MG tablet,delayed release (DR/EC) 1 tab PO DAILY RF: 0 diltiazem HCl 90 MG capsule,extended release 12 hr 1 cap PO DAILY RF: 0 gabapentin 100 mg Capsule 100 mg PO HS RF: 0 Discontinued fenofibrate micronized [Lofibra] 134 MG capsule 1 cap PO HS RF: 0 Follow ups/Referrals Follow ups/Referrals: AMARI FIORE [Primary Care Provider] - 1 WEEK Instructions Stand Alone Forms: Excuse From Work or School, Precautions for COVID19, Patient Portal, Social Distancing
[2020-01-26] MEDS ORDERED: NS 250 ML IV 250 ML IV ONE (09:46)
[2020-01-26 13:31] VITALS: BP 142/76
== END 2020-01-26 12:55 | disposition home or self-care (01) | DRG 177 ==
LOC: ICU 16:59
PROVIDERS: ADMIT Internal Medicine; ATTEND Internal Medicine
DX: R73.9 Hyperglycemia, unspecified; K21.9 Gastro-esophageal reflux disease without esophagitis; I12.9 Hypertensive chronic kidney disease with stage 1 through stage 4 chronic kidney disease, or unspecified chronic kidney disease; J12.89 Other viral pneumonia; U07.1 COVID-19; N18.30 Chronic kidney disease, stage 3 unspecified; E86.0 Dehydration